=== PATIENT | male | born 1980 | race African-American/Black ===

== ENCOUNTER 2017-07-25 11:55 | Inpatient (IN) | payer OTHER ==
[2017-07-25 12:58] VITALS: BMI 23.8
--- NOTE | 2017-07-25 15:00 | HP ---
COWS - Scale Resting Pulse: 0= [place] 80 or Below Sweatin= Chills/Flushing Restless Observation: 1= Difficult to Sit Still Pupil Size: 1= Pupils >than Normal Bone or Joint Aches: 2= Severe Diffuse Aches Runny Nose/ Eye Tearin= Nasal Congestion GI Upset > 30mins: 2= Nausea/Diarrhea Tremor Observation: 2= Slight Tremor Visible Yawning Observation: 1= 1-2x During Session Anxiety or Irritability: 2=Irritable/Anxious Goose Flesh Skin: 0=Smooth Skin COWS Score: 13 Admission [facility] Chief Complaint: opiate withdrawal sx Allergies/Adverse Reactions: Allergies Allergy/AdvReac Type Severity Reaction Status Date / Time No Known Allergies Allergy Verified 07/25/17 15:12 History of Present Illness: 37 years old male with long history of opiate nicotine dependence has raised mass right lateral chest wall 1+ years has depression and anxiety is admitted to detox Exam Limitations: No Limitations - Ebola screening Have you traveled outside of the country in the last 21 days: No Have you had contact with anyone from an Ebola affected area: No Have you been sick,other than usual withdrawal symptoms: No Do you have a fever: No - Review of Systems Constitutional: Changes in sleep, Weight Stable EENT: reports: No Symptoms Reported Respiratory: reports: No Symptoms reported Cardiac: reports: No Symptoms Reported GI: reports: Nausea, Poor Fluid Intake, Abdominal cramping : reports: No Symptoms Reported Musculoskeletal: reports: Back Pain, Joint Pain, Muscle Pain, Neck Pain Integumentary: reports: Change in Color (right lateral chest wall), Lumps ( right lateral chest wall) Neuro: reports: Tremors Endocrine: reports: No Symptoms Reported Hematology: reports: No Symptoms Reported Psychiatric: reports: Judgement Intact, Orientated x3, Anxious, Depressed Other Systems: Reviewed and Negative Patient History - Patient Medical History Hx Anemia: No Hx Asthma: No Hx Chronic Obstructive Pulmonary Disease (COPD): No Hx Cancer: No Hx Cardiac Disorders: No Hx Congestive Heart Failure: No Hx Hypertension: No Hx Hypercholesterolemia: No Hx Pacemaker: No HX Cerebrovascular Accident: No Hx Seizures: No Hx Dementia: No Hx Diabetes: No Hx Gastrointestinal Disorders: No Hx Liver Disease: No Hx Genitourinary Disorders: No Hx Sexually Transmitted Disorders: No Hx Renal Disease (ESRD): No Hx Thyroid Disease: No Hx Human Immunodeficiency Virus (HIV): No Hx Hepatitis C: No Hx Depression: Yes Hx Suicide Attempt: No Hx Bipolar Disorder: No Hx Schizophrenia: No - Patient Surgical History Past Surgical History: No - PPD History Previous Implant?: Yes Documented Results: Negative w/o proof Implanted On Prior [facility] Admission?: No PPD to be Administered?: Yes - Smoking Cessation Smoking history: Current every day smoker Have you smoked in the past 12 months: Yes Aproximately how many cigarettes per day: 10 Cigars Per Day: 0 Hx Chewing Tobacco Use: No Initiated information on smoking cessation: Yes 'Breaking Loose' booklet given: 07/25/17 - Substance & Tx. History Hx Alcohol Use: No Hx Substance Use: Yes Substance Use Type: Marijuana, Opiates Hx Substance Use Treatment: No (1st detox) - Substances Abused Heroin Route: Inhalation Frequency: Daily Amount used: 5 bags Age of first use: 32 Date of Last Use: 07/25/17 Family Disease History - Family Disease History Family Disease History: Other: Father () Admission Physical Exam S - Vital Signs Vital Signs: Vital Signs - 24 hr 07/25/17 12:50 Temperature 97.7 F Pulse Rate 66 Respiratory 20 Rate Blood Pressure 124/81 - Physical General Appearance: Yes: Appropriately Dressed, Mild Distress, Thin, Tremorous, Irritable, Sweating, Anxious HEENTM: Yes: Hearing grossly Normal, Normocephalic, Normal Voice Respiratory: Yes: Chest Non-Tender, Lungs Clear, Normal Breath Sounds, No Respiratory Distress, No Accessory Muscle Use Neck: Yes: Supple, Trachea in good position Breast: Yes: Breasts Symetrical, No Discharge Cardiology: Yes: Regular Rhythm, Regular Rate, S1, S2 Abdominal: Yes: Normal Bowel Sounds, Non Tender, Flat Genitourinary: Yes: Within Normal Limits Back: Yes: Normal Inspection Musculoskeletal: Yes: full range of Motion, Gait Steady, Back pain, Muscle Pain Extremities: Yes: Normal Inspection, Normal Range of Motion, Non-Tender, Tremors Neurological: Yes: Fully Oriented, Alert, Motor Strength 5/5, Normal Response, Depressed Affect Integumentary: Yes: Warm, Other (lump 1+ year right lateral chest wall) Lymphatic: Yes: Within Normal Limits - Diagnostic (1) Opioid dependence with withdrawal Current Visit: Yes Status: Acute (2) Nicotine dependence Current Visit: Yes Status: Acute Qualifiers: Nicotine product type: cigarettes Substance use status: in withdrawal Qualified Code(s): F17.213 - Nicotine dependence, cigarettes, with withdrawal (3) Depression (emotion) Current Visit: Yes Status: Suspected Qualifiers: Depression Type: dysthymia Qualified Code(s): F34.1 - Dysthymic disorder (4) Lump in chest Current Visit: Yes Status: Chronic Comment: 1+ year seen by surgeon will be removed after detox Cleared for Admission S - Detox or Rehab [facility] Level of Care: Medically Managed Detox Regimen/Protocol: Methadone [facility] Breath Alcohol Content Breath Alcohol Content: 0 Urine Drug Screen - Results Drug Screen Negative: No Urine Drug Screen Results: THC-Marijuana, OPI-Opiates
[2017-07-25] MEDS ORDERED: ACETAMINOPHEN 325 MG TABLET (FP) PO PRN (15:27)
[2017-07-25] MEDS ORDERED: MAG HYDROX/AL HYDROX/SIMETH 30 ML UNIT-DOSE CUP PO PRN (15:27)
[2017-07-25] MEDS ORDERED: NICOTINE POLACRILEX 2 MG GUM BC PRN (15:27)
[2017-07-25] MEDS ORDERED: LOPERAMIDE HCL 2 MG CAPSULE PO PRN (15:27)
[2017-07-25] MEDS ORDERED: P-EPHED 60MG/TRIPROLIDI 2.5MG TABLET PO PRN (15:27)
[2017-07-25] MEDS ORDERED: guaiFENesin/D-METHORPHAN HB 10 ML UNIT-DOSE CUPS PO PRN (15:27)
[2017-07-25] MEDS ORDERED: MENTHOL/PHENOL 1 EACH UD MM PRN (15:27)
[2017-07-25] MEDS ORDERED: MAGNESIUM HYDROX 2400MG/30ML ORAL SUSPENSION 30 ML CUP PO PRN (15:27)
[2017-07-25] MEDS ORDERED: IBUPROFEN 400 MG TABLET (FP) PO PRN (15:27)
[2017-07-25] MEDS ORDERED: MAGNESIUM CITRATE 300 ML BOTTLE PO PRN (15:27)
[2017-07-25] MEDS ORDERED: METHADONE HCL 10 MG TABLET (FOR DETOX USE ONLY) PO ONE ×2 (18:15→23:00)
[2017-07-25] MEDS: diazePAM 5 MG TABLET PO PRN (18:39)
[2017-07-25] MEDS: THIAMINE HCL 100 MG TABLET (FP) PO SCH (22:32)
[2017-07-25] MEDS: MELATONIN 5 MG TABLETS PO PRN (22:33)
[2017-07-25 23:08] LABS: URINE APPEARANCE CLEAR; URINE BILIRUBIN NEGATIVE (<2.0 mg/dL); URINE COLOR YELLOW; URINE GLUCOSE (UA) NEGATIVE (NEGATIVE); URINE KETONE NEGATIVE (NEGATIVE); URINE LEUK ESTERASE NEGATIVE (NEGATIVE); URINE NITRITE NEGATIVE (NEGATIVE); URINE PROTEIN NEGATIVE (NEGATIVE); URINE UROBILINOGEN NEGATIVE mg/dL (0.2-1.0)
[2017-07-26] MEDS ORDERED: METHADONE HCL 10 MG TABLET (FOR DETOX USE ONLY) PO ONE (10:00)
[2017-07-26 10:35] LABS: HEMATOCRIT 42.2 % (35.4-49); MCH 29.3 pg (25.7-33.7); MCHC 33.3 g/dl (32.0-35.9); MEAN CELL VOLUME 88.1 fl (80-96); MEAN PLT VOLUME 9.2 fl (7.5-11.1); PLATELET COUNT 240 K/MM3 (134-434); RBC 4.78 M/mm3 (4.00-5.60); RDW 15.1 % (11.9-15.9); WHITE BLOOD COUNT 6.7 K/mm3 (4.0-10.0)
[2017-07-26] MEDS: PRENATAL VITAMINS W/ FOLIC ACID TABLET (FP) PO SCH (10:43)
[2017-07-26] MEDS: NICOTINE 14 MG/24 HOURS TOPICAL PATCH TD SCH (10:43)
[2017-07-26] MEDS: diazePAM 5 MG TABLET PO PRN ×2 (10:43→22:12)
[2017-07-26 10:55] LABS: CHLORIDE 103 mmol/L (98-107); POTASSIUM 4.4 mmol/L (3.5-5.1); SODIUM 138 mmol/L (136-145)
--- NOTE | 2017-07-26 11:19 | CONSULT ---
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 Substance Abuse History: Smoking history: Current every day smoker. Have you smoked in the past 12 months: Yes. Aproximately how many cigarettes per day: 10. Cigars Per Day: 0. Hx Chewing Tobacco Use: No. Initiated information on smoking cessation: Yes. 'Breaking Loose' booklet given: 07/25/17. - Substance & Tx. History. Hx Alcohol Use: No. Hx Substance Use: Yes. Substance Use Type : Marijuana, Opiates. Hx Substance Use Treatment: No (1st detox). - Substances Abused. Heroin. Route: Inhalation. Frequency: Daily. Amount used: 5 bags. Age of first use: 32. Date of Last Use: 07/25/17 Medical History: Chest lump, scheduled for surgery Psychiatric History: Denies past psychiatric history Physical/Sexual Abuse/Trauma History: Denies Additional Comment: Observation. Detox Unit Care Protocol Mental Status Exam - Mental Status Exam Alert and Oriented to: Person Cognitive Function: Fair Patient Appearance: Unkempt Affect: Flat Patient Behavior: Sedated Speech Pattern: Delayed Voice Loudness: Mildly Soft/Quiet Thought Process: Goal Oriented Thought Disorder: Being Controlled Hallucinations: Denies Suicidal Ideation: Denies Homicidal Ideation: Denies Insight/Judgement: Fair Sleep: Difficulty falling asleep Appetite: Fair Muscle strength/Tone: Mild Hypotonicity Gait/Station: Normal Additional Comments: Observation. Detox Unit Care Protocol Psychiatric Findings - Problem List ([place] 1, 2,3) (1) Drug-induced mood disorder Current Visit: Yes Status: Suspected (2) Nicotine dependence Current Visit: Yes Status: Acute Qualifiers: Nicotine product type: cigarettes Substance use status: in withdrawal Qualified Code(s): F17.213 - Nicotine dependence, cigarettes, with withdrawal (3) Opioid dependence with withdrawal Current Visit: Yes Status: Acute - Initial Treatment Plan Initial Treatment Plan: Observation. Detox Unit Care Protocol
[2017-07-26 11:40] LABS: ALK PHOS 85 U/L (45-117); ANION GAP 5 (8-16); BILIRUBIN,TOTAL 0.4 mg/dL (0.2-1.0); BLOOD UREA NITROGEN 13 mg/dL (7-18); CALCIUM 9.1 mg/dL (8.5-10.1); CO2 30 mmol/L (21-32); GLUCOSE,RANDOM 75 mg/dL (74-106); SGOT/AST 18 U/L (15-37); TOT PROT 8.6 g/dl (6.4-8.2)
--- NOTE | 2017-07-26 11:54 | PN ---
[facility] COWS - Scale Resting Pulse: 0= [place] 80 or Below Sweatin= Chills/Flushing Restless Observation: 1= Difficult to Sit Still Pupil Size: 1= Pupils >than Normal Bone or Joint Aches: 2= Severe Diffuse Aches Runny Nose/ Eye Tearin= Nasal Congestion GI Upset > 30mins: 1= Stomach Cramp Tremor Observation of Outstretched Hands: 1= Tremor [place], Not Seen Yawning Observation: 2= >3x During Session Anxiety or Irritability: 2=Irritable/Anxious Goose Flesh Skin: 0=Smooth Skin COWS Score: 12 S Progress Note (SOAP) Subjective: joint pain body ache trouble sleep at night sweat chill cold Objective: 07/26/17 11:53 Vital Signs Temperature 97.9 F 07/26/17 10:00 Pulse Rate 54 L 07/26/17 10:00 Respiratory Rate 18 07/26/17 10:00 Blood Pressure 114/74 07/26/17 10:00 O2 Sat by Pulse Oximetry (%) Laboratory Last Values WBC 6.7 K/mm3 (4.0-10.0) 07/26/17 05:55 RBC 4.78 M/mm3 (4.00-5.60) 07/26/17 05:55 Hgb 14.0 GM/dL (11.7-16.9) 07/26/17 05:55 Hct 42.2 % (35.4-49) 07/26/17 05:55 MCV 88.1 fl (80-96) 07/26/17 05:55 MCH 29.3 pg (25.7-33.7) 07/26/17 05:55 MCHC 33.3 g/dl (32.0-35.9) 07/26/17 05:55 RDW 15.1 % (11.9-15.9) 07/26/17 05:55 Plt Count 240 K/MM3 (134-434) 07/26/17 05:55 MPV 9.2 fl (7.5-11.1) 07/26/17 05:55 Sodium 138 mmol/L (136-145) 07/26/17 05:55 Potassium 4.4 mmol/L (3.5-5.1) 07/26/17 05:55 Chloride 103 mmol/L (98-107) 07/26/17 05:55 Carbon Dioxide 30 mmol/L (21-32) 07/26/17 05:55 Anion Gap 5 (8-16) L 07/26/17 05:55 BUN 13 mg/dL (7-18) 07/26/17 05:55 Creatinine 1.0 mg/dL (0.7-1.3) 07/26/17 05:55 Creat Clearance w eGFR > 60 (>60) 07/26/17 05:55 Random Glucose 75 mg/dL (74-106) 07/26/17 05:55 Calcium 9.1 mg/dL (8.5-10.1) 07/26/17 05:55 Total Bilirubin 0.4 mg/dL (0.2-1.0) 07/26/17 05:55 AST 18 U/L (15-37) 07/26/17 05:55 Alkaline Phosphatase 85 U/L (45-117) 07/26/17 05:55 Total Protein 8.6 g/dl (6.4-8.2) H 07/26/17 05:55 Albumin 4.0 g/dl (3.4-5.0) 07/26/17 05:55 Urine Color Yellow 07/25/17 20:06 Urine Appearance Clear 07/25/17 20:06 Urine pH 6.0 (5.0-8.0) 07/25/17 20:06 Ur Specific [place] 1.016 (1.001-1.035) 07/25/17 20:06 Urine Protein Negative (NEGATIVE) 07/25/17 20:06 Urine Glucose (UA) Negative (NEGATIVE) 07/25/17 20:06 Urine Ketones Negative (NEGATIVE) 07/25/17 20:06 Urine Blood Negative (NEGATIVE) 07/25/17 20:06 Urine Nitrite Negative (NEGATIVE) 07/25/17 20:06 Urine Bilirubin Negative (<2.0 mg/dL) 07/25/17 20:06 Urine Urobilinogen Negative mg/dL (0.2-1.0) 07/25/17 20:06 Ur Leukocyte Esterase Negative (NEGATIVE) 07/25/17 20:06 lab noted Assessment: 07/26/17 11:53 withdrawal sx Plan: continue detox
[2017-07-26 12:07] LABS: SGPT/ALT 19 U/L (12-78)
--- NOTE | 2017-07-26 13:30 | EKG ---
Test Reason : Blood Pressure : / mmHG Vent. Rate : 066 BPM Atrial Rate : 066 BPM P-R Int : 156 ms QRS Dur : 086 ms QT Int : 392 ms P-R-T Axes : 067 020 032 degrees QTc Int : 410 ms NORMAL SINUS RHYTHM WITH SINUS ARRHYTHMIA NORMAL ECG NO PREVIOUS ECGS AVAILABLE Confirmed by PINA ROSE, LINDA ([id number]) on 07/26/2017 1:29:52 PM Referred By: Confirmed By:LINDA HELLER MD
[2017-07-26] MEDS: THIAMINE HCL 100 MG TABLET (FP) PO SCH (22:12)
[2017-07-26] MEDS: MELATONIN 5 MG TABLETS PO PRN (22:12)
--- NOTE | 2017-07-27 09:15 | PN ---
[facility] COWS - Scale Resting Pulse: 0= [place] 80 or Below Sweatin= Chills/Flushing Restless Observation: 1= Difficult to Sit Still Pupil Size: 1= Pupils >than Normal Bone or Joint Aches: 1= Mild Discomfort Runny Nose/ Eye Tearin= Nasal Congestion GI Upset > 30mins: 1= Stomach Cramp Tremor Observation of Outstretched Hands: 1= Tremor [place], Not Seen Yawning Observation: 2= >3x During Session Anxiety or Irritability: 2=Irritable/Anxious Goose Flesh Skin: 0=Smooth Skin COWS Score: 11 BHS Progress Note (SOAP) Subjective: joint pain body ache mild gi distress sleep better at night patient preferred end of opiate detox on 07/29/17 and return to [facility] for chest lump MRI and possible surgically removed Objective: 07/27/17 09:12 Vital Signs Temperature 97.5 F L 07/27/17 07:40 Pulse Rate 56 L 07/27/17 07:40 Respiratory Rate 16 07/27/17 07:40 Blood Pressure 109/71 07/27/17 07:40 O2 Sat by Pulse Oximetry (%) Laboratory Last Values WBC 6.7 K/mm3 (4.0-10.0) 07/26/17 05:55 RBC 4.78 M/mm3 (4.00-5.60) 07/26/17 05:55 Hgb 14.0 GM/dL (11.7-16.9) 07/26/17 05:55 Hct 42.2 % (35.4-49) 07/26/17 05:55 MCV 88.1 fl (80-96) 07/26/17 05:55 MCH 29.3 pg (25.7-33.7) 07/26/17 05:55 MCHC 33.3 g/dl (32.0-35.9) 07/26/17 05:55 RDW 15.1 % (11.9-15.9) 07/26/17 05:55 Plt Count 240 K/MM3 (134-434) 07/26/17 05:55 MPV 9.2 fl (7.5-11.1) 07/26/17 05:55 Sodium 138 mmol/L (136-145) 07/26/17 05:55 Potassium 4.4 mmol/L (3.5-5.1) 07/26/17 05:55 Chloride 103 mmol/L (98-107) 07/26/17 05:55 Carbon Dioxide 30 mmol/L (21-32) 07/26/17 05:55 Anion Gap 5 (8-16) L 07/26/17 05:55 BUN 13 mg/dL (7-18) 07/26/17 05:55 Creatinine 1.0 mg/dL (0.7-1.3) 07/26/17 05:55 Creat Clearance w eGFR > 60 (>60) 07/26/17 05:55 Random Glucose 75 mg/dL (74-106) 07/26/17 05:55 Calcium 9.1 mg/dL (8.5-10.1) 07/26/17 05:55 Total Bilirubin 0.4 mg/dL (0.2-1.0) 07/26/17 05:55 AST 18 U/L (15-37) 07/26/17 05:55 ALT 19 U/L (12-78) 07/26/17 05:55 Alkaline Phosphatase 85 U/L (45-117) 07/26/17 05:55 Total Protein 8.6 g/dl (6.4-8.2) H 07/26/17 05:55 Albumin 4.0 g/dl (3.4-5.0) 07/26/17 05:55 Urine Color Yellow 07/25/17 20:06 Urine Appearance Clear 07/25/17 20:06 Urine pH 6.0 (5.0-8.0) 07/25/17 20:06 Ur Specific [place] 1.016 (1.001-1.035) 07/25/17 20:06 Urine Protein Negative (NEGATIVE) 07/25/17 20:06 Urine Glucose (UA) Negative (NEGATIVE) 07/25/17 20:06 Urine Ketones Negative (NEGATIVE) 07/25/17 20:06 Urine Blood Negative (NEGATIVE) 07/25/17 20:06 Urine Nitrite Negative (NEGATIVE) 07/25/17 20:06 Urine Bilirubin Negative (<2.0 mg/dL) 07/25/17 20:06 Urine Urobilinogen Negative mg/dL (0.2-1.0) 07/25/17 20:06 Ur Leukocyte Esterase Negative (NEGATIVE) 07/25/17 20:06 RPR Titer Nonreactive (NONREACTIVE) 07/26/17 05:55 lab noted Assessment: 07/27/17 09:13 withdrawal sx 07/27/17 09:14 mass chest wall x 1+ year Plan: continue detox health teaching on health related opiate misuse and lump management
[2017-07-27] MEDS: diazePAM 5 MG TABLET PO PRN ×2 (09:52→22:17)
[2017-07-27] MEDS: PRENATAL VITAMINS W/ FOLIC ACID TABLET (FP) PO SCH (09:53)
[2017-07-27] MEDS: NICOTINE 14 MG/24 HOURS TOPICAL PATCH TD SCH (09:53)
[2017-07-27] MEDS ORDERED: METHADONE HCL 5 MG TABLET (FOR DETOX USE ONLY) PO ONE ×2 (10:00)
[2017-07-27] MEDS: MELATONIN 5 MG TABLETS PO PRN (22:17)
[2017-07-27] MEDS: THIAMINE HCL 100 MG TABLET (FP) PO SCH (22:17)
[2017-07-28] MEDS ORDERED: METHADONE HCL 5 MG TABLET (FOR DETOX USE ONLY) PO ONE (10:00)
[2017-07-28] MEDS ORDERED: METHADONE HCL 10 MG TABLET (FOR DETOX USE ONLY) PO ONE (10:00)
[2017-07-28] MEDS: PRENATAL VITAMINS W/ FOLIC ACID TABLET (FP) PO SCH (10:17)
[2017-07-28] MEDS: NICOTINE 14 MG/24 HOURS TOPICAL PATCH TD SCH (10:18)
[2017-07-28] MEDS: diazePAM 5 MG TABLET PO PRN (10:56)
--- NOTE | 2017-07-28 12:44 | PN ---
[facility] Progress Note (SOAP) Subjective: alert,pain of site of right chest wall tumor,body Objective: 07/28/17 12:43 Vital Signs Temperature 98.1 F 07/28/17 09:02 Pulse Rate 55 L 07/28/17 09:02 Respiratory Rate 18 07/28/17 09:02 Blood Pressure 101/66 07/28/17 09:02 O2 Sat by Pulse Oximetry (%) Assessment: 07/28/17 12:43 withdrawal symptom Plan: continue detox
--- NOTE | 2017-07-28 14:41 | PN ---
MEET Progress Note Note: patient did not want to complete treatment,stated he has to go to [facility] for treatment of tumor of chest now and his is waiting for him to bring him to hospital
--- NOTE | 2017-07-28 14:47 | DS ---
[facility] Detox Discharge Summary Admission Date: 07/25/17 Discharge Date: 07/28/17 - History Present History: Opioid Dependence Additional Comments: patient signed release ama,stated he has to go to [facility] for treatment of tumor of right chest wall now, his will drive him to hospital,all attempts to convince patient to stay with no avails Pertinent Past History: nicotine dependence tumor of right chest wall - Physical Exam Results Vital Signs: Vital Signs Temperature 98.1 F 07/28/17 09:02 Pulse Rate 55 L 07/28/17 09:02 Respiratory Rate 18 07/28/17 09:02 Blood Pressure 101/66 07/28/17 09:02 O2 Sat by Pulse Oximetry (%) Pertinent Admission Physical Exam Findings: withdrawal signs and symptom Vital Signs Temperature 98.1 F 07/28/17 09:02 Pulse Rate 55 L 07/28/17 09:02 Respiratory Rate 18 07/28/17 09:02 Blood Pressure 101/66 07/28/17 09:02 O2 Sat by Pulse Oximetry (%) Laboratory Last Values WBC 6.7 K/mm3 (4.0-10.0) 07/26/17 05:55 RBC 4.78 M/mm3 (4.00-5.60) 07/26/17 05:55 Hgb 14.0 GM/dL (11.7-16.9) 07/26/17 05:55 Hct 42.2 % (35.4-49) 07/26/17 05:55 MCV 88.1 fl (80-96) 07/26/17 05:55 MCH 29.3 pg (25.7-33.7) 07/26/17 05:55 MCHC 33.3 g/dl (32.0-35.9) 07/26/17 05:55 RDW 15.1 % (11.9-15.9) 07/26/17 05:55 Plt Count 240 K/MM3 (134-434) 07/26/17 05:55 MPV 9.2 fl (7.5-11.1) 07/26/17 05:55 Sodium 138 mmol/L (136-145) 07/26/17 05:55 Potassium 4.4 mmol/L (3.5-5.1) 07/26/17 05:55 Chloride 103 mmol/L (98-107) 07/26/17 05:55 Carbon Dioxide 30 mmol/L (21-32) 07/26/17 05:55 Anion Gap 5 (8-16) L 07/26/17 05:55 BUN 13 mg/dL (7-18) 07/26/17 05:55 Creatinine 1.0 mg/dL (0.7-1.3) 07/26/17 05:55 Creat Clearance w eGFR > 60 (>60) 07/26/17 05:55 Random Glucose 75 mg/dL (74-106) 07/26/17 05:55 Calcium 9.1 mg/dL (8.5-10.1) 07/26/17 05:55 Total Bilirubin 0.4 mg/dL (0.2-1.0) 07/26/17 05:55 AST 18 U/L (15-37) 07/26/17 05:55 ALT 19 U/L (12-78) 07/26/17 05:55 Alkaline Phosphatase 85 U/L (45-117) 07/26/17 05:55 Total Protein 8.6 g/dl (6.4-8.2) H 07/26/17 05:55 Albumin 4.0 g/dl (3.4-5.0) 07/26/17 05:55 Urine Color Yellow 07/25/17 20:06 Urine Appearance Clear 07/25/17 20:06 Urine pH 6.0 (5.0-8.0) 07/25/17 20:06 Ur Specific [place] 1.016 (1.001-1.035) 07/25/17 20:06 Urine Protein Negative (NEGATIVE) 07/25/17 20:06 Urine Glucose (UA) Negative (NEGATIVE) 07/25/17 20:06 Urine Ketones Negative (NEGATIVE) 07/25/17 20:06 Urine Blood Negative (NEGATIVE) 07/25/17 20:06 Urine Nitrite Negative (NEGATIVE) 07/25/17 20:06 Urine Bilirubin Negative (<2.0 mg/dL) 07/25/17 20:06 Urine Urobilinogen Negative mg/dL (0.2-1.0) 07/25/17 20:06 Ur Leukocyte Esterase Negative (NEGATIVE) 07/25/17 20:06 RPR Titer Nonreactive (NONREACTIVE) 07/26/17 05:55 - Medication Discharge Medications: Ambulatory Orders NK [No Known Home Medication] 07/25/17 - Diagnosis (1) Opioid dependence with withdrawal Current Visit: Yes Status: Acute (2) Lump in chest Current Visit: Yes Status: Chronic (3) Nicotine dependence Current Visit: Yes Status: Acute Qualifiers: Nicotine product type: cigarettes Substance use status: in withdrawal Qualified Code(s): F17.213 - Nicotine dependence, cigarettes, with withdrawal - AMA Did Patient Leave Against Medical Advice: Yes
[2017-07-28 14:48] VITALS: BP 135/82; PULSE 78; TEMP 98
[2017-07-29] MEDS ORDERED: METHADONE HCL 5 MG TABLET (FOR DETOX USE ONLY) PO ONE (06:00)
[2017-07-29] MEDS ORDERED: METHADONE HCL 10 MG TABLET (FOR DETOX USE ONLY) PO ONE (10:00)
[2017-07-30] MEDS ORDERED: METHADONE HCL 5 MG TABLET (FOR DETOX USE ONLY) PO ONE (06:00)
== END 2017-07-28 15:10 | disposition left against medical advice (07) | DRG 770 ==
LOC: YASAS 11:55 → Y6N 17:36
PROVIDERS: ADMIT Surgery; ATTEND Surgery
PROC: HZ2ZZZZ Detoxification Services for Substance Abuse Treatment (ICD-10-PCS; principal; 2017-07-25)
DX: F11.23 Opioid dependence with withdrawal (principal); F17.213 Nicotine dependence, cigarettes, with withdrawal; F34.1 Dysthymic disorder; F19.24 Other psychoactive substance dependence with psychoactive substance-induced mood disorder; R22.2 Localized swelling, mass and lump, trunk
CPT/HCPCS: 36415; 80053; 81003; 85027; 86593; 93005; 93010

== ENCOUNTER 2020-07-07 19:44 | Inpatient (IN) | payer OTHER ==
[2020-07-07] MEDS ORDERED: IBUPROFEN 400 MG TABLET (FP) PO PRN (22:11)
[2020-07-07] MEDS ORDERED: MAG HYDROX/AL HYDROX/SIMETH 30 ML UNIT-DOSE CUP PO PRN (22:11)
[2020-07-07] MEDS ORDERED: MENTHOL/PHENOL 1 EACH UD MM PRN (22:11)
[2020-07-07] MEDS ORDERED: BISMUTH SUBSALICYLATE 524 MG/30 ML UD PO PRN (22:11)
[2020-07-07] MEDS ORDERED: NICOTINE POLACRILEX 2 MG GUM BUC PRN (22:11)
[2020-07-07] MEDS ORDERED: MAGNESIUM HYDROX 2400MG/30ML ORAL SUSPENSION 30 ML CUP PO PRN (22:11)
[2020-07-07] MEDS ORDERED: ONDANSETRON *ODT* 4 MG TABLET SL PRN (22:11)
[2020-07-07] MEDS ORDERED: ACETAMINOPHEN 325 MG TABLET (FP) PO PRN ×2 (22:11)
[2020-07-07] MEDS ORDERED: MAGNESIUM CITRATE 300 ML BOTTLE PO PRN (22:11)
[2020-07-07 22:24] VITALS: BMI 22.5
[2020-07-08 10:05] LABS: HEMOGLOBIN 13.5 GM/dL (11.7-16.9); MCH 29.9 pg (25.7-33.7); MCHC 33.7 g/dl (32.0-35.9); MEAN CELL VOLUME 88.7 fl (80-96); MEAN PLT VOLUME 9.2 fl (7.5-11.1); PLATELET COUNT 247 K/MM3 (134-434); RBC 4.51 M/mm3 (4.00-5.60); RDW 15.5 % (11.9-15.9); WHITE BLOOD COUNT 7.3 K/mm3 (4.0-10.0)
[2020-07-08 10:21] LABS: BLOOD UREA NITROGEN 13.3 mg/dL (7-18)
[2020-07-08 10:22] LABS: CALCIUM 9.2 mg/dL (8.5-10.1)
[2020-07-08 10:23] LABS: ALBUMIN 3.4 g/dl (3.4-5.0); BILIRUBIN,TOTAL 0.3 mg/dL (0.2-1)
[2020-07-08 10:24] LABS: TOT PROT 7.2 g/dl (6.4-8.2)
[2020-07-08] MEDS ORDERED: cloNIDine HCL 0.1 MG TABLET PO PRN ×2 (12:15→16:53)
[2020-07-08] MEDS ORDERED: METHADONE HCL 10 MG TABLET (FOR DETOX USE ONLY) PO ONE (12:15)
[2020-07-08] MEDS: PRENATAL VITAMINS W/ FOLIC ACID TABLET (FP) PO SCH (12:28)
[2020-07-08] MEDS: THIAMINE HCL 100 MG TABLET (FP) PO SCH (22:52)
[2020-07-08] MEDS: MELATONIN 5 MG TABLETS PO SCH (22:52)
[2020-07-08] MEDS: METHOCARBAMOL 500 MG TABLET PO PRN (22:53)
[2020-07-09] MEDS ORDERED: METHADONE HCL 10 MG TABLET (FOR DETOX USE ONLY) ONE (09:47)
[2020-07-09] MEDS ORDERED: METHADONE HCL 5 MG TABLET (FOR DETOX USE ONLY) ONE (09:47)
[2020-07-09] MEDS ORDERED: METHADONE (DETOX) 20 MG, METHADONE (DETOX) 5 MG PO ONE (10:00)
[2020-07-09] MEDS: PRENATAL VITAMINS W/ FOLIC ACID TABLET (FP) PO SCH (11:05)
[2020-07-09] MEDS: hydrOXYzine PAMOATE 25 MG CAPSULE (FP) PO PRN (11:05)
[2020-07-09] MEDS: MELATONIN 5 MG TABLETS PO SCH (23:20)
[2020-07-09] MEDS: THIAMINE HCL 100 MG TABLET (FP) PO SCH (23:20)
[2020-07-10 06:07] LABS: SARS-CoV-2 NAA Not Detected (Not Detected)
[2020-07-10] MEDS ORDERED: METHADONE HCL 10 MG TABLET (FOR DETOX USE ONLY) PO ONE (10:00)
[2020-07-10] MEDS: hydrOXYzine PAMOATE 25 MG CAPSULE (FP) PO PRN ×2 (10:50→22:03)
[2020-07-10] MEDS: PRENATAL VITAMINS W/ FOLIC ACID TABLET (FP) PO SCH (10:50)
[2020-07-10] MEDS: METHOCARBAMOL 500 MG TABLET PO PRN ×2 (10:50→22:03)
[2020-07-10] MEDS: THIAMINE HCL 100 MG TABLET (FP) PO SCH (22:03)
[2020-07-10] MEDS: MELATONIN 5 MG TABLETS PO SCH (22:03)
[2020-07-11] MEDS ORDERED: METHADONE HCL 5 MG TABLET (FOR DETOX USE ONLY) ONE (09:48)
[2020-07-11] MEDS ORDERED: METHADONE HCL 10 MG TABLET (FOR DETOX USE ONLY) ONE (09:48)
[2020-07-11] MEDS ORDERED: METHADONE (DETOX) 10 MG, METHADONE (DETOX) 5 MG PO ONE (10:00)
[2020-07-11] MEDS: PRENATAL VITAMINS W/ FOLIC ACID TABLET (FP) PO SCH (11:11)
[2020-07-11] MEDS: hydrOXYzine PAMOATE 25 MG CAPSULE (FP) PO PRN (22:22)
[2020-07-11] MEDS: METHOCARBAMOL 500 MG TABLET PO PRN (22:22)
[2020-07-11] MEDS: THIAMINE HCL 100 MG TABLET (FP) PO SCH (22:22)
[2020-07-11] MEDS: MELATONIN 5 MG TABLETS PO SCH (22:22)
[2020-07-12] MEDS: METHOCARBAMOL 500 MG TABLET PO PRN ×2 (07:01→21:00)
[2020-07-12] MEDS ORDERED: METHADONE HCL 10 MG TABLET (FOR DETOX USE ONLY) PO ONE (10:00)
[2020-07-12] MEDS: PRENATAL VITAMINS W/ FOLIC ACID TABLET (FP) PO SCH (10:44)
[2020-07-12] MEDS: MELATONIN 5 MG TABLETS PO SCH (21:00)
[2020-07-12] MEDS: hydrOXYzine PAMOATE 25 MG CAPSULE (FP) PO PRN (21:00)
[2020-07-13] MEDS: THIAMINE HCL 100 MG TABLET (FP) PO SCH (00:01)
[2020-07-13] MEDS ORDERED: METHADONE HCL 5 MG TABLET (FOR DETOX USE ONLY) PO ONE (06:00)
[2020-07-13 08:38] VITALS: BP 116/69; PULSE 65
[2020-07-13 08:40] VITALS: TEMP 96.8
[2020-07-13] MEDS: PRENATAL VITAMINS W/ FOLIC ACID TABLET (FP) PO SCH (10:43)
== END 2020-07-13 10:43 | disposition home or self-care (01) | DRG 773 ==
LOC: YASAS 19:44 → UNDOADMIN 22:11 → Y6N 22:11
PROVIDERS: ADMIT Allergy & Immunology; ATTEND Allergy & Immunology
PROC: HZ2ZZZZ Detoxification Services for Substance Abuse Treatment (ICD-10-PCS; principal; 2020-07-07)
DX: F11.23 Opioid dependence with withdrawal (principal); F14.10 Cocaine abuse, uncomplicated; F12.20 Cannabis dependence, uncomplicated; F10.10 Alcohol abuse, uncomplicated; F17.210 Nicotine dependence, cigarettes, uncomplicated; R22.2 Localized swelling, mass and lump, trunk
CPT/HCPCS: 36415; 80053; 85027; 86780; C9803; U0003; U0005

== ENCOUNTER 2021-02-01 19:00 | Inpatient (IN) | payer OTHER ==
[2021-02-01 20:31] VITALS: BMI 21.2
[2021-02-01] MEDS ORDERED: hydrOXYzine PAMOATE 25 MG CAPSULE (FP) PO PRN (21:17)
[2021-02-01] MEDS ORDERED: BISMUTH SUBSALICYLATE 524 MG/30 ML PO PRN (21:17)
[2021-02-01] MEDS ORDERED: MAG HYDROX/AL HYDROX/SIMETH 30 ML UNIT-DOSE CUP PO PRN (21:17)
[2021-02-01] MEDS ORDERED: MAGNESIUM CITRATE 300 ML BOTTLE PO PRN (21:17)
[2021-02-01] MEDS ORDERED: MENTHOL/PHENOL 1 EACH UD MM PRN (21:17)
[2021-02-01] MEDS ORDERED: MAGNESIUM HYDROX 2400MG/30ML ORAL SUSPENSION 30 ML CUP PO PRN (21:17)
[2021-02-01] MEDS ORDERED: ONDANSETRON *ODT* 4 MG TABLET SL PRN (21:17)
[2021-02-01] MEDS ORDERED: ACETAMINOPHEN 325 MG TABLET (FP) PO PRN ×2 (21:17)
[2021-02-01] MEDS ORDERED: IBUPROFEN 400 MG TABLET (FP) PO PRN (21:17)
[2021-02-01] MEDS ORDERED: METHOCARBAMOL 500 MG TABLET PO PRN (21:17)
[2021-02-01] MEDS ORDERED: cloNIDine HCL 0.1 MG TABLET PO PRN (21:21)
[2021-02-02] MEDS: MELATONIN 5 MG TABLETS PO SCH ×2 (01:25→22:25)
[2021-02-02] MEDS: THIAMINE HCL 100 MG TABLET (FP) PO SCH ×2 (01:25→22:25)
[2021-02-02 10:35] LABS: ALBUMIN 3.2 g/dl (3.4-5.0); BLOOD UREA NITROGEN 16.5 mg/dL (7-18); HEMATOCRIT 39.3 % (35.4-49); HEMOGLOBIN 13.3 GM/dL (11.7-16.9); MCH 30.1 pg (25.7-33.7); MCHC 33.8 g/dl (32.0-35.9); MEAN CELL VOLUME 88.9 fl (80-96); MEAN PLT VOLUME 9.1 fl (7.5-11.1); PLATELET COUNT 215 10^3/uL (134-434); RBC 4.42 M/mm3 (4.00-5.60); RDW 15.8 % (11.9-15.9); WHITE BLOOD COUNT 7.4 K/mm3 (4.0-10.0)
[2021-02-02 10:36] LABS: CALCIUM 9.1 mg/dL (8.5-10.1)
[2021-02-02 10:38] LABS: CREATININE 0.8 mg/dL (0.55-1.3)
[2021-02-02 10:40] LABS: BILIRUBIN,TOTAL 0.4 mg/dL (0.2-1)
[2021-02-02] MEDS: PRENATAL VITAMINS W/ FOLIC ACID TABLET (FP) PO SCH (11:22)
[2021-02-03 09:10] VITALS: BP 134/84; PULSE 78; TEMP 97.3
[2021-02-03] MEDS: PRENATAL VITAMINS W/ FOLIC ACID TABLET (FP) PO SCH (11:11)
== END 2021-02-03 12:17 | disposition home or self-care (01) | DRG 773 ==
LOC: YASAS 19:00 → Y6N 21:46
PROVIDERS: ADMIT Allergy & Immunology; ATTEND Allergy & Immunology
PROC: HZ2ZZZZ Detoxification Services for Substance Abuse Treatment (ICD-10-PCS; principal; 2021-02-01)
DX: F11.23 Opioid dependence with withdrawal (principal); F14.20 Cocaine dependence, uncomplicated; F12.20 Cannabis dependence, uncomplicated; F17.213 Nicotine dependence, cigarettes, with withdrawal; R00.0 Tachycardia, unspecified
CPT/HCPCS: 36415; 80053; 85027; 86780; C9803; Q0162; U0003; U0005